=== PATIENT | male | born 1980 | race Caucasian/White ===

== ENCOUNTER 2021-04-06 13:40 | Emergency (ER) | payer SELFPAY ==
[~2021-04-06] VITALS: Ht 167.6 cm; Wt 73.6 kg
[2021-04-06] MEDS ORDERED: CEPHALEXIN500 M1 PO (16:58)
[2021-04-06 17:15] VITALS: BP 154/87; PULSE 88; TEMP 98.1
== END 2021-04-06 17:15 | disposition home or self-care (01) ==
LOC: COL.ER 13:40
DX: S61.216A Laceration without foreign body of right little finger without damage to nail, initial encounter (principal); W23.1XXA Caught, crushed, jammed, or pinched between stationary objects, initial encounter

== ENCOUNTER 2021-04-25 09:51 | Outpatient (RCR) | payer OTHER ==
[~2021-04-25 09:51] MED LIST: CEPHALEXIN500 M1 PO
== END 2021-05-14 | disposition home or self-care (01) ==
LOC: WSOH
DX: Z48.02 Encounter for removal of sutures (principal); S61.216D Laceration without foreign body of right little finger without damage to nail, subsequent encounter; Y99.0 Civilian activity done for income or pay